=== PATIENT | female | born 1965 | race Caucasian/White ===

== ENCOUNTER 2020-04-01 12:59 | Emergency (ER) | payer BC, OTHER ==
[2020-04-01] MEDS ORDERED: Sodium Chloride 0.9% 10 ML Syringe FLUSH PRN (13:16)
[2020-04-01] MEDS ORDERED: Sodium Chloride 0.9% 2.5 ML Syringe FLUSH PRN (13:16)
[2020-04-01] MEDS ORDERED: Sodium Chloride 0.9% 10 ML SDV IV PRN (13:16)
[2020-04-01] MEDS ORDERED: valACYclovir 500 MG Tab PO ONE (13:18)
[2020-04-01] MEDS ORDERED: methylPREDNISolone Sodium Succinate 125 MG/2 ML SDV IVPUSH ONE (13:18)
--- NOTE | 2020-04-01 13:24 | EDM.PDOC ---
ED [facility] GENERAL MEDICAL PROBLEM - General Chief Complaint: Neuro Symptoms/Deficits Stated Complaint: STROKE CODE Time Seen by Provider: 04/01/20 13:15 - History of Present Illness INITIAL COMMENTS - FREE TEXT/NARRATIVE: HISTORY AND PHYSICAL: History of present illness: This 55-year-old female presents to the emergency department complaining of difficulty closing her left eye. Patient states that this began yesterday and is slowly progressed. Some change in taste/tongue sensation yesterday. She has had some intermittent tingling in her left hand but she is not sure if that is just because she is scared this might be a stroke or if this is actually real. It is not persistent. She does not complain of any changes in her hearing. No difficulty speaking. No slurred speech. No difficulty with ambulation. Review of systems: A 10-point review of systems, other than pertinent positives and negatives as stated per HPI, is otherwise negative. Past medical history: As per history of present illness and as reviewed below otherwise noncontributory. Surgical history: As per history of present illness and as reviewed below otherwise noncontributory. Social history: No reported history of drug or alcohol abuse. Family history: As per history of present illness and as reviewed below otherwise noncontributory. Physical exam: VITAL SIGNS: Reviewed. GENERAL: Does not appear to be in physiologic distress. Is concerned about her condition. Has difficulty closing her left eye. HEAD: No signs of head trauma. EYES: Pupils are equal. Extraocular motions intact. EARS: Hearing grossly intact. MOUTH: Oropharynx is normal. NECK: No adenopathy, no JVD. CHEST: Chest with clear breath sounds bilaterally. No wheezes, rales, or rhonchi. CARDIAC: Regular rate and rhythm. Normal S1 and S2, without murmurs, gallops, or rubs. VASCULAR: Peripheral pulses normal and equal in all extremities. ABDOMEN: Soft, without detectable tenderness. No sign of distention. No rebound or guarding, and no masses palpated. MUSCULOSKELETAL: Good range of motion of all major joints. Extremities without clubbing, cyanosis or edema. NEUROLOGIC EXAM: Alert and oriented x 3. Cranial nerves II through XII are intact other than difficulty with closing of the left eye. Extraocular motions are intact. No visual defects. No pronator drift. Gait is normal walking to the bed from the emergency department lobby. Speech normal. Follows commands. PSYCHIATRIC: Mood normal. SKIN: No rash or lesions. 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 Given that the forehead is still working appropriately I will obtain a CT scan. Likely will require MRI for further rule out. Change in taste and change in closing of the eyes consistent with an early Leonard's palsy. I will give a dose of steroids and antiviral agent. Low likelihood that this represents a case requiring TPA. Definitive disposition and diagnosis as appropriate pending reevaluation and review of above. - Related Data Allergies Allergy/AdvReac Type Severity Reaction Status Date / Time Penicillins Allergy Rash Verified 04/01/20 13:57 Home Meds: Home Meds Aspirin [Halfprin] 81 mg PO DAILY 06/26/14 [History] Levothyroxine Sodium [Synthroid] 75 mcg PO BEDTIME 06/26/14 [History] Omeprazole [Prilosec] 40 mg PO ASDIRECTED 06/26/14 [History] Apremilast [Otezla] 30 mg PO BID 04/01/20 [History] Losartan [Cozaar] 50 mg PO DAILY 04/01/20 [History] Mineral Oil/Petrolatum Oint [Lacri-Lube S.O.P Oint] 3.5 gm .XX QID #1 tube 04/01/20 [Rx] predniSONE [Prednisone] 50 mg PO DAILY 5 Days #5 tablet 04/01/20 [Rx] valACYclovir HCl [valACYclovir] 1,000 mg PO TID 7 Days #21 tablet 04/01/20 [Rx] ED ROS GENERAL - Review of Systems Review Of Systems: See Below (noted) ED EXAM, NEURO - Physical Exam Exam: See Below (noted) ED NEURO PROCEDURES - Additional/Other Procedure(s) Other (Free Text) Procedure(s): PROCEDURE: THROMBOLYSIS FOR ACUTE STROKE Indications: acute ischemic stroke Last known well: 1700 yesterday Indications and contraindications were carefully considered Exclusion criteria were reviewed: Using current hospital guidelines there were no absolute exclusion criteria Consideration was also given to relative exclusions: No relative Exclusion Criteria Finally, relative exclusions for 3-4.5 hour window were reviewed: Patient is outside of the 4.5-hour window. After these considerations: the patient was not a candidate and it was not offered EKG INTERPRETATION EKG Interpretation Comments: 12 lead EKG interpretation Obtained: April 01, 2020 at 1336 Rhythm: Sinus Rate: 94 [place]: Normal Intervals: Normal ST/T Segments: No acute ischemic changes Interpretation: Sinus Rhythm Course - Vital Signs Last Recorded V/S: Last Vital Signs Temp 97.2 F 04/01/20 13:00 Pulse 110 H 04/01/20 13:00 Resp 17 04/01/20 13:00 BP 180/106 H 04/01/20 13:00 Pulse Ox 100 04/01/20 13:00 - Orders/Labs/Meds Orders: Active Orders 24 hr Category Date Time Status Assess Neurological Status [RC] ASDIRECTED Care 04/01/20 13:16 Active Bedrest [RC] ASDIRECTED Care 04/01/20 13:16 Active Blood Glucose Check, Bedside [RC] ONETIME Care 04/01/20 13:16 Active Cardiac Monitoring [RC] . DIRECTED Care 04/01/20 13:16 Active EKG Documentation Completion [RC] STAT Care 04/01/20 13:16 Active Height and Weight [RC] UPON Care 04/01/20 13:16 Active Initiate Acute Stroke Protocol [RC] STAT Care 04/01/20 13:16 Active NIH Stroke Scale [RC] ASDIRECTED Care 04/01/20 13:16 Active Nursing Bedside Swallow Screen [RC] ASDIRECTED Care 04/01/20 13:16 Active Oxygen Therapy [RC] ASDIRECTED Care 04/01/20 13:16 Active Stroke Education, General [RC] Click to Edit Care 04/01/20 13:16 Active Vital Signs [RC] Q15M Care 04/01/20 13:16 Active C-REACTIVE PROTEIN [CHEM] Stat Lab 04/01/20 13:25 Received COMPREHENSIVE METABOLIC PN,CMP [CHEM] Stat Lab 04/01/20 13:25 Received TROPONIN I [CHEM] Stat Lab 04/01/20 13:25 Received TSH [CHEM] Stat Lab 04/01/20 13:25 Received Sodium Chloride 0.9% [Normal Saline] Med 04/01/20 13:16 Active 10 ml IV ASDIRECTED PRN Sodium Chloride 0.9% [Saline Flush] Med 04/01/20 13:16 Active 10 ml FLUSH ASDIRECTED PRN Sodium Chloride 0.9% [Saline Flush] Med 04/01/20 13:16 Active 2.5 ml FLUSH ASDIRECTED PRN Peripheral IV Insertion Adult [OM.PC] Stat Ot 04/01/20 13:16 Ordered Peripheral IV Insertion Adult [OM.PC] Stat Ot 04/01/20 13:16 Ordered Medication Orders Sodium Chloride (Saline Flush) 10 ml FLUSH ASDIRECTED PRN PRN Reason: Keep Vein Open Sodium Chloride (Saline Flush) 2.5 ml FLUSH ASDIRECTED PRN PRN Reason: Keep Vein Open Sodium Chloride (Normal Saline) 10 ml IV ASDIRECTED PRN PRN Reason: IV Use Labs: Laboratory Tests 04/01/20 04/01/20 04/01/20 Range/Units 13:25 13:25 13:25 WBC 7.08 (4.0-11.0) K/uL RBC 4.53 (4.30-5.90) M/uL Hgb 13.4 (12.0-16.0) g/dL Hct 41.2 (36.0-46.0) % MCV 90.9 (80.0-98.0) fL MCH 29.6 (27.0-32.0) pg MCHC 32.5 (31.0-37.0) g/dL RDW Std Deviation 41.8 (28.0-62.0) fl RDW Coeff of Henny 12 (11.0-15.0) % Plt Count 256 (150-400) K/uL MPV 10.10 (7.40-12.00) fL Neut % (Auto) 60.2 (48.0-80.0) % Lymph % (Auto) 29.0 (16.0-40.0) % Hubbard % (Auto) 9.3 (0.0-15.0) % Eos % (Auto) 1.4 (0.0-7.0) % Baso % (Auto) 0.1 (0.0-1.5) % Neut # (Auto) 4.3 (1.4-5.7) K/uL Lymph # (Auto) 2.1 (0.6-2.4) K/uL Hubbard # (Auto) 0.7 (0.0-0.8) K/uL Eos # (Auto) 0.1 (0.0-0.7) K/uL Baso # (Auto) 0.0 (0.0-0.1) K/uL Nucleated RBC % 0.0 /100WBC Nucleated RBCs # 0 K/uL ESR 17 (0-29) mm/hr INR 1.03 APTT 23.2 (18.6-31.3) SEC Meds: Medications Generic Name Dose Route Start Last Admin Trade Name Freq PRN Reason Stop Dose Admin Sodium Chloride 10 ml 04/01/20 13:16 Saline Flush FLUSH ASDIRECTED PRN Keep Vein Open Sodium Chloride 2.5 ml 04/01/20 13:16 Saline Flush FLUSH ASDIRECTED PRN Keep Vein Open Sodium Chloride 10 ml 04/01/20 13:16 Normal Saline IV ASDIRECTED PRN IV Use Discontinued Medications Generic Name Dose Route Start Last Admin Trade Name Freq PRN Reason Stop Dose Admin Methylprednisolone Sodium Succinate 125 mg 04/01/20 13:18 04/01/20 13:42 Solu-Medrol IVPUSH 04/01/20 13:19 125 mg ONETIME ONE Administration Valacyclovir HCl 1,000 mg 04/01/20 13:18 04/01/20 13:42 Valtrex PO 04/01/20 13:19 1,000 mg ONETIME ONE Administration - Re-Assessments/Exams Free Text/Narrative Re-Assessment/Exam: 04/01/20 14:08 After reevaluation and discussion of the case with the patient. 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 She began having taste changes yesterday at dinner. Her last time known well without any symptoms was yesterday at 1700 hrs. Given last time known well was greater than 4.5 hours she is not a candidate for thrombolysis. The argument could also be made that she is not a candidate because she only has difficulty with closing her left eye and the treatment will be the same for Leonard's palsy versus an acute ischemic stroke if it does not progress. No other current symptoms other than some mild change in the taste. 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 I will start her on prednisone and Valtrex. Follow-up with her primary care doctor for MRI as an outpatient. My diagnostic impression: 1. Partial Leonard's palsy Departure - Departure Time of Disposition: 14:09 Disposition: Home, Self-Care 01 Clinical Impression: Leonard's palsy - Discharge Information *PRESCRIPTION DRUG MONITORING PROGRAM REVIEWED*: Not Applicable *COPY OF PRESCRIPTION DRUG MONITORING REPORT IN PATIENT EVAN: Not Applicable Instructions: Leonard Palsy, Adult Forms: ED Department Discharge Additional Instructions: The following information is given to patients seen in the emergency department who are being discharged to home. This information is to outline your options for follow-up care. We provide all patients seen in our emergency department with a follow-up referral. The need for follow-up, as well as the timing and circumstances, are variable depending upon the specifics of your emergency department visit. If you don't have a primary care physician on staff, we will provide you with a referral. We always advise you to contact your personal physician following an emergency department visit to inform them of the circumstance of the visit and for follow-up with them and/or the need for any referrals to a consulting specialist. The emergency department will also refer you to a specialist when appropriate. This referral assures that you have the opportunity for follow-up care with a specialist. All of these measure are taken in an effort to provide you with optimal care, which includes your follow-up. Thank you for coming to the [facility] urgency department for your care today. It was Dr. Tsai's pleasure to take care of you. Please see Dr. Hinkle in follow-up. He is your primary care doctor. I recommend an MRI as an outpatient with and without contrast to ensure that there are no missed lesions that are causing her Leonard's palsy. Please use the Lacri-Lube o intment as prescribed. We will also give you steroids and antiviral agents. Please follow-up with your clinical audiologist for further evaluation of your eye. Under all circumstances we always encourage you to contact your private physician who remains a resource for coordinating your care. When calling for follow-up care, please make the office aware that this follow-up is from your recent emergency room visit. If for any reason you are refused follow-up, please contact the [facility] Emergency Department at and asked to speak to the emergency department charge nurse. Sepsis Event Note (ED) - Focused Exam Vital Signs: Vital Signs Temp Pulse Resp BP Pulse Ox 04/01/20 13:00 97.2 F 110 H 17 180/106 H 100 - My Orders Last 24 Hours: My Active Orders 04/01/20 13:16 Assess Neurological Status [RC] ASDIRECTED Bedrest [RC] ASDIRECTED Blood Glucose Check, Bedside [RC] ONETIME Cardiac Monitoring [RC] . DIRECTED EKG Documentation Completion [RC] STAT Height and Weight [RC] UPON Initiate Acute Stroke Protocol [RC] STAT NIH Stroke Scale [RC] ASDIRECTED Nursing Bedside Swallow Screen [RC] ASDIRECTED Oxygen Therapy [RC] ASDIRECTED Stroke Education, General [RC] Click to Edit Vital Signs [RC] Q15M Sodium Chloride 0.9% [Normal Saline] 10 ml IV ASDIRECTED PRN Sodium Chloride 0.9% [Saline Flush] 10 ml FLUSH ASDIRECTED PRN Sodium Chloride 0.9% [Saline Flush] 2.5 ml FLUSH ASDIRECTED PRN Peripheral IV Insertion Adult [OM.PC] Stat Peripheral IV Insertion Adult [OM.PC] Stat 04/01/20 13:25 C-REACTIVE PROTEIN [CHEM] Stat COMPREHENSIVE METABOLIC PN,CMP [CHEM] Stat TROPONIN I [CHEM] Stat TSH [CHEM] Stat - Assessment/Plan Last 24 Hours: My Active Orders 04/01/20 13:16 Assess Neurological Status [RC] ASDIRECTED Bedrest [RC] ASDIRECTED Blood Glucose Check, Bedside [RC] ONETIME Cardiac Monitoring [RC] . DIRECTED EKG Documentation Completion [RC] STAT Height and Weight [RC] UPON Initiate Acute Stroke Protocol [RC] STAT NIH Stroke Scale [RC] ASDIRECTED Nursing Bedside Swallow Screen [RC] ASDIRECTED Oxygen Therapy [RC] ASDIRECTED Stroke Education, General [RC] Click to Edit Vital Signs [RC] Q15M Sodium Chloride 0.9% [Normal Saline] 10 ml IV ASDIRECTED PRN Sodium Chloride 0.9% [Saline Flush] 10 ml FLUSH ASDIRECTED PRN Sodium Chloride 0.9% [Saline Flush] 2.5 ml FLUSH ASDIRECTED PRN Peripheral IV Insertion Adult [OM.PC] Stat Peripheral IV Insertion Adult [OM.PC] Stat 04/01/20 13:25 C-REACTIVE PROTEIN [CHEM] Stat COMPREHENSIVE METABOLIC PN,CMP [CHEM] Stat TROPONIN I [CHEM] Stat TSH [CHEM] Stat
--- NOTE | 2020-04-01 13:29 | CT ---
Head CT Technique: Multiple axial sections through the brain were obtained. Intravenous contrast was not utilized. Comparison: No previous intracranial imaging is available. Findings: Ventricles along with basal cisterns and sulci over the convexities are within normal limits for the patient's age. No abnormal parenchymal densities are seen. No evidence of intracranial hemorrhage. No midline shift or mass effect is seen. Visualized paranasal sinuses show nothing acute. Visualized mastoid sinuses showed nothing acute. No acute calvarial finding is appreciated. Impression: 1. No acute intracranial abnormality is appreciated. Diagnostic code #1 Study was dictated in MDT
[2020-04-01 14:02] LABS: BLOOD UREA NITROGEN,BUN 13 mg/dL (7.0-18.0); CARBON DIOXIDE,CO2 22.8 mmol/L (21.0-32.0); CHLORIDE,CL 104 mmol/L (98-107); GLUCOSE RANDOM 98 mg/dL (74-106); POTASSIUM,K 3.9 mmol/L (3.5-5.1); SODIUM,NA 139 mmol/L (136-145)
[2020-04-01 14:27] VITALS: BP 138/95; PULSE 97
== END 2020-04-01 14:25 | disposition home or self-care (01) ==
LOC: MW.ED 12:59
DX: G51.0 Bell's palsy (principal); Z88.0 Allergy status to penicillin; Z79.82 Long term (current) use of aspirin
CPT/HCPCS: 36415; 70450; 80053; 84443; 84484; 85025; 85610; 85652; 85730; 86140; 93005; 96374; 99284; A9270; J2930; 99283

== ENCOUNTER 2022-11-23 13:37 | Emergency (ER) | payer OTHER ==
[2022-11-23] MEDS ORDERED: Sodium Chloride 0.9% 1,000 ML IV ONE (14:23)
[2022-11-23] MEDS ORDERED: Metoclopramide 10 MG/2 ML SDV IVPUSH ONE (14:23)
[2022-11-23] MEDS ORDERED: diphenhydrAMINE 50 MG/ML SDV IVPUSH ONE (14:23)
[2022-11-23] MEDS ORDERED: Ketorolac 30 MG/ML SDV IVPUSH ONE (14:23)
[2022-11-23 15:35] LABS: CARBON DIOXIDE,CO2 27.6 mmol/L (21.0-32.0); POTASSIUM,K 3.4 mmol/L (3.5-5.1)
[2022-11-23 16:15] VITALS: BP 133/96; PULSE 80
== END 2022-11-23 16:14 | disposition home or self-care (01) ==
LOC: MW.ED 13:37
DX: R20.2 Paresthesia of skin (principal); I10 Essential (primary) hypertension; E03.9 Hypothyroidism, unspecified; Z79.82 Long term (current) use of aspirin; Z79.899 Other long term (current) drug therapy; Z88.0 Allergy status to penicillin
CPT/HCPCS: 36415; 70450; 80053; 83735; 85025; 96361; 96374; 96375; 99284; J1200; J1885; J2765; J7030